=== PATIENT | female | born 1935 | race Caucasian/White ===

== ENCOUNTER 2017-10-04 06:08 | Day surgery (SDC) | payer OTHER ==
[~2017-10-04] VITALS: Ht 157.5 cm; Wt 77.2 kg
[2017-10-04 06:50] VITALS: BP 161/105; PULSE 100; RESP 20; TEMP 98.2; O2SAT 100
[2017-10-04] MEDS ORDERED: COQ-50CA2 PO (06:56)
[2017-10-04] MEDS ORDERED: HYDR12.57 PO (06:56)
[2017-10-04] MEDS ORDERED: FERR325T18 PO (06:56)
[2017-10-04] MEDS ORDERED: BENA10TA PO (06:56)
[2017-10-04] MEDS ORDERED: CALC250T PO (06:56)
[2017-10-04] MEDS ORDERED: PRAV80TA2 PO (06:56)
[2017-10-04] MEDS ORDERED: MAGN400T2 PO (06:56)
[2017-10-04] MEDS ORDERED: DOCU1CAP66 PO (06:56)
[2017-10-04] MEDS ORDERED: MULTTAB67 PO (06:56)
[2017-10-04 07:21] LABS: AUTOMATED NEUTROPHIL # 2.5 TH/MM3 (1.8-7.7); BASOPHIL # 0.1 TH/MM3 (0-0.2); BASOPHIL % 1.2 % (0.0-2.0); EOSINOPHIL # 0.2 TH/MM3 (0-0.4); EOSINOPHIL % 3.9 % (0.0-4.0); HEMATOCRIT 31.7 % (35.0-46.0); HEMO FLAGS DIFF FINAL; LYMPH % 39.8 % (9.0-44.0); LYMPHOCYTE # 2.2 TH/MM3 (1.0-4.8); MEAN CORPUSCULAR HEMOGLOBIN 25.8 PG (27.0-34.0); MEAN CORPUSCULAR HGB CONC 31.9 % (32.0-36.0); MONO % 9.6 % (0.0-8.0); NEUT % 45.5 % (16.0-70.0); PLATELET COUNT 459 TH/MM3 (150-450); RED BLOOD COUNT 3.91 MIL/MM3 (4.00-5.30); RED CELL DISTRIBUTION WIDTH 18.3 % (11.6-17.2); WHITE BLOOD COUNT 5.4 TH/MM3 (4.0-11.0)
[2017-10-04] MEDS ORDERED: SODIUM CHLOR 0.9% 1000 ML IV SCH (07:45)
[2017-10-04] MEDS ORDERED: LIDOCAINE 1%/EPINEPHrine 1:100,000 SOLN 20 ML VIAL ONE (07:58)
[2017-10-04] MEDS ORDERED: MIDAZOLAM HCL 2 MG/2 ML VIAL ONE (08:14)
--- NOTE | 2017-10-04 08:41 | PD.RAD ---
Post CT Procedure Prog Note Pre Procedure Diagnosis: (1) Anemia Post Procedure Diagnosis: (1) Anemia Procedure Date: Oct 04, 2017 Supervising Radiologist: Tremayne Valerio Anesthesia: Conscious Sedation Plan of Activity Patient to Unit: [facility] Patient Condition: Good See PACS Report for procedural detail/treatment Tremayne Valerio MD Oct 04, 2017 08:40
[2017-10-04 08:55] VITALS: BP 115/73; PULSE 99; RESP 18; TEMP 97.5; O2SAT 93
[2017-10-04 09:10] VITALS: BP 113/79; PULSE 98; RESP 18; O2SAT 92
[2017-10-04 09:40] VITALS: BP 135/84; PULSE 97; RESP 18; O2SAT 95
[2017-10-04 09:44] LABS: BONE MARROW PROCESSING COMPLETE; IRON STAIN DONE; JENNER GIEMSA STAIN DONE
[2017-10-04 10:10] VITALS: BP 106/72; PULSE 100; RESP 18; O2SAT 95
--- NOTE | 2017-10-04 11:24 | RADRPT ---
EXAM DATE/TIME: 10/04/2017 08:23 [facility] COMPARISON: No previous studies available for comparison. INDICATIONS : Anemia. SEDATION TIME: 30 minutes BIOPSY SITE: Right iliac MEDICATION(S): 1.) 3 mg midazolam (Versed) IV 2.) 150 mcg fentanyl (Sublimaze) IV DEVICE(S): 1.) 11 gauge Bone marrow biopsy needle MEDICAL HISTORY : Hypertension. Anemia SURGICAL HISTORY : Hysterectomy. ENCOUNTER: Initial ACUITY: 1 day PAIN SCORE: 0/10 LOCATION: Right pelvis A total of one core specimen(s) were obtained and sent to the laboratory for pathologic evaluation. PROCEDURE: 1. CT guided bone marrow biopsy. 2. Conscious sedation with continuous EKG and oximetry monitoring. Prior to the procedure informed consent was obtained. Any appropriate prior imaging studies were rev iewed. Using automated exposure control and adjustment of the mA and/or kV according to patient size , radiation dose was kept as low as reasonably achievable to obtain optimal diagnostic quality images . DICOM format image data is available electronically for review and comparison. The site was prepped in a sterile fashion. Full sterile technique was used, including cap, mask, connie rile gloves and gown and a large sterile sheet. Hand hygiene and 2% chlorhexidine and/or betadine/al cohol prep was utilized per protocol for cutaneous antisepsis. The skin and subcutaneous tissues wer e infiltrated with local anesthetic solution. With CT guidance the previously identified target was localized. Biopsy was performed using the presc ribed needle as above. Following biopsy marrow aspiration was performed with repeat puncture. Adequa te hemostasis was obtained with compression at the puncture site. Follow-up CT scan reveals no hemorrhage. Conscious sedation was performed with the prescribed dosages and duration as above in the presence of an independent trained radiology nurse to assist in the monitoring of the patient. EKG and oximetry remained stable throughout the procedure. The patient tolerated the procedure well and there were no complications. The patient was sent to Radiology Outpatient Unit in stable condition. CONCLUSION: 1. Uncomplicated CT guided bone marrow aspirate. 2. Uncomplicated CT guided bone marrow biopsy. Tremayne Valerio MD on October 04, 2017 at 11:22 Board Certified Radiologist. This report was verified electronically.
== END 2017-10-04 10:52 | disposition home or self-care (01) ==
LOC: HRAD 06:08 → HRIP 06:11 → HRAD 10:52
PROVIDERS: ATTEND Internal Medicine Hematology & Oncology
DX: D50.9 Iron deficiency anemia, unspecified (principal); D47.3 Essential (hemorrhagic) thrombocythemia; I10 Essential (primary) hypertension
CPT/HCPCS: 38221; 77012; 85025; 85097; 88184; 88185; 88237; 88264; 88280; 88305; 88311; 88313; 99152; 99153; C1830; G0364; J2250; J3010; J7030

== ENCOUNTER → 2018-01-20 | Day surgery (SDC) | payer OTHER ==
--- NOTE | 2018-01-15 15:34 | MH ---
cc: Ashish Tapia MD DATE OF ADMISSION: 01/20/2018 ADMITTING DIAGNOSIS: Osteoarthritic degeneration, right knee, now being admitted for right total knee arthroplasty. ADMISSION HISTORY AND PHYSICAL: This pleasant 83-year-old female is being admitted today for right total knee arthroplasty for severe painful osteoarthritic degeneration, right knee. PAST MEDICAL HISTORY: The patient has a history of iron deficiency anemia, but her current hemoglobin is 11.7. She also has a history of hypertension. CURRENT MEDICATIONS: Vitamins with iron, pravastatin, benazepril, hydrochlorothiazide, calcium citrate and ferrous gluconate. PAST SURGICAL HISTORY: Biopsy of the breast. REVIEW OF SYSTEMS: Noncontributory. FAMILY HISTORY: Noncontributory. SOCIAL HISTORY: She does not smoke, drinks socially. ALLERGIES: IS ALLERGIC TO CODEINE, BUT NOT NORCO, AND PENICILLIN. PHYSICAL EXAMINATION: GENERAL: We find an 83-year-old female, well developed, well nourished, oriented x 3, complaining of pain in the right knee. VITAL SIGNS: Blood pressure 118/80, pulse 94 and regular, respirations 16, temperature 97.7, pulse oximetry 98% on room air. HEENT: Eyes PERRL, EOMI. Ears, nose, mouth clear. NECK: Supple. LUNGS: Clear. HEART: Regular rate. ABDOMEN: Soft, positive bowel sounds, nontender. EXTREMITIES: Reveal the right knee to be tender. Neurovascularly intact to her toes. IMPRESSION: Severe painful osteoarthritic degeneration, right knee. PLAN: Admission for right total knee arthroplasty today. The patient was given prescription for postoperative pain and anticoagulation control in the office. Plans on going home after surgical stay in the hospital. JMD GLENNA Cardenas/BRITTNEE , 03:10 PM , 03:32 PM
[~2018-01-20] MED LIST: BENA10TA PO; BUPIVACAINE LIPOSO PF 1.3% INJ 20 ML, BUPIVACAINE PF 0.25% INJ 20 ML in SODIUM CHLORIDE... P-ARTICULR SCH; CALC250T PO; CHLORHEXIDINE GLUCONATE 2 % 1 PACK (2 CLOTHS) TOPICAL PRN; CHLORHEXIDINE GLUCONATE 4% SOLN 120 ML BTL TOPICAL SCH; CLINDAMYCIN 900 MG/NS 100 ML IV SCH; COQ-50CA2 PO; DEXAMETHASONE SOD PHOS 20 MG/5 ML VIAL IV ONE; DOCU1CAP66 PO; FERR325T18 PO; HYDR12.57 PO; L-LY500T4 PO; LACTATED RINGER'S 1000 ML IV PRN; MAGN400T2 PO; METOPROLOL TARTRATE 25 MG TAB PO PRN; MULTTAB67 PO; Magnesium; POVIDONE IODINE 5% (ANTISEPSIS KIT) 4 APPLICATIONS EACH NARE PRN; PRAV80TA2 PO; SODIUM CHLORID 0.9% 500 ML IV PRN; TRANEXAMIC ACID INJ 790 MG in SODIUM CHLORIDE 0.9% INJ 100 ML IV SCH; VANCOMYCIN 1000 MG/NS 250 ML (for <70 kg) IV SCH; VITA500T83 PO
[2018-01-20 08:05] VITALS: BP 142/83; PULSE 102; RESP 16; TEMP 97.5; O2SAT 98
[2018-01-20 09:19] LABS: BILIRUBIN, URINE NEG (NEG); BLOOD, URINE NEG (NEG); GLUCOSE,URINE NEG (NEG); HYALINE CAST, URINE 2 /lpf (RARE); KETONE, URINE NEG (NEG); NITRITE,URINE NEG (NEG); PH, URINE 5.5 (5.0-8.5); URINE COLOR YELLOW (YELLW/STRAW); URINE LEUKOCYTE ESTERASE NEG (NEG)
[2018-01-20 09:20] LABS: SQUAMOUS EPITHELIAL CELL URINE <1 /hpf (0-5)
== END | disposition home or self-care (01) ==
LOC: HSDC 07:42
PROVIDERS: ATTEND Surgery
DX: M17.11 Unilateral primary osteoarthritis, right knee (principal); R82.99 Other abnormal findings in urine; I10 Essential (primary) hypertension; Z88.5 Allergy status to narcotic agent; Z53.09 Procedure and treatment not carried out because of other contraindication
CPT/HCPCS: 81001; C9290; G0463; 99211

== ENCOUNTER 2018-01-24 06:23 | Inpatient (IN) | payer OTHER, MEDICARE ==
[~2018-01-24] VITALS: Ht 157.5 cm; Wt 78.9 kg
[~2018-01-24 06:23] MED LIST changes: -BUPIVACAINE LIPOSO PF 1.3% INJ 20 ML, BUPIVACAINE PF 0.25% INJ 20 ML in SODIUM CHLORIDE... P-ARTICULR SCH; -CHLORHEXIDINE GLUCONATE 2 % 1 PACK (2 CLOTHS) TOPICAL PRN; -CHLORHEXIDINE GLUCONATE 4% SOLN 120 ML BTL TOPICAL SCH; -CLINDAMYCIN 900 MG/NS 100 ML IV SCH; -DEXAMETHASONE SOD PHOS 20 MG/5 ML VIAL IV ONE; -LACTATED RINGER'S 1000 ML IV PRN; -METOPROLOL TARTRATE 25 MG TAB PO PRN; -Magnesium; -POVIDONE IODINE 5% (ANTISEPSIS KIT) 4 APPLICATIONS EACH NARE PRN; -SODIUM CHLORID 0.9% 500 ML IV PRN; -TRANEXAMIC ACID INJ 790 MG in SODIUM CHLORIDE 0.9% INJ 100 ML IV SCH; -VANCOMYCIN 1000 MG/NS 250 ML (for <70 kg) IV SCH
[2018-01-24] MEDS ORDERED: CHLORHEXIDINE GLUCONATE 2 % 1 PACK (2 CLOTHS) TOPICAL PRN (07:15)
[2018-01-24] MEDS ORDERED: CHLORHEXIDINE GLUCONATE 4% SOLN 120 ML BTL TOPICAL SCH (07:15)
[2018-01-24] MEDS ORDERED: METOPROLOL TARTRATE 25 MG TAB PO PRN (07:15)
[2018-01-24] MEDS ORDERED: POVIDONE IODINE 5% (ANTISEPSIS KIT) 4 APPLICATIONS EACH NARE PRN (07:15)
[2018-01-24] MEDS ORDERED: VANCOMYCIN 1000 MG/NS 250 ML (for <70 kg) IV SCH ×2 (07:15)
[2018-01-24] MEDS ORDERED: CLINDAMYCIN 900 MG/NS 100 ML IV SCH ×2 (07:15)
[2018-01-24] MEDS: DEXAMETHASONE SOD PHOS PF 10 MG/ML VIAL IV PUSH ONE ×2 (07:15→07:28)
[2018-01-24] MEDS ORDERED: SODIUM CHLORID 0.9% 500 ML IV PRN (07:15)
[2018-01-24] MEDS ORDERED: LACTATED RINGER'S 1000 ML IV PRN (07:15)
[2018-01-24] MEDS ORDERED: ACETAMINOPHEN 1000 MG/100 ML 100 ML IV ONE (07:16)
[2018-01-24 07:24] VITALS: PULSE 92
[2018-01-24] MEDS ORDERED: FAT EMULSION 20% INJ 0 ML ONE (07:34)
[2018-01-24] MEDS ORDERED: GENTAMICIN SULFATE 80 MG/2 ML VIAL ONE (07:51)
[2018-01-24] MEDS ORDERED: MIDAZOLAM HCL 2 MG/2 ML VIAL ONE (08:10)
[2018-01-24] MEDS ORDERED: ROPIVACAINE 0.5% PF INJ 30 ML VIAL ONE (08:11)
[2018-01-24] MEDS ORDERED: BUPIVACAINE LIPOSO PF 1.3% INJ 20 ML, BUPIVACAINE PF 0.25% INJ 20 ML in SODIUM CHLORIDE... P-ARTICULR SCH (08:15)
[2018-01-24] MEDS ORDERED: SODIUM CHLORIDE 0.9% IV SCH ×3 (08:30→12:00)
[2018-01-24] MEDS ORDERED: TRANEXAMIC ACID IV SCH ×3 (08:30→12:00)
[2018-01-24] MEDS ORDERED: NALOXONE HCL 0.4 MG/ML AMP IV PUSH PRN (08:45)
[2018-01-24] MEDS ORDERED: Post-op Orders (for Pharmacy) XX ONE (08:45)
--- NOTE | 2018-01-24 08:50 | HHI.FF ---
Face to Face Verification Diagnosis: (1) Status post total right knee replacement using cement Physical Therapy Gait training Knee: Total knee, Protocol: Right, Full weight bearing Canvas Knee Splint: When in bed & 2 pillows btw thighs Nursing RN: 3 days/week x 2 weeks Nursing: Dressing changes Dressing Changes: Daily dressing change, 4x4s, Gauze, Paper tape I have seen patient Trevin Damico on 01/24/18. My clinical findings support the need for the requested home health care services because: Limited ability to care for self High risk of falls I certify that my clinical findings support that this patient is homebound because: Unsteady gait/balance Ashish Tapia MD Jan 24, 2018 08:50
[2018-01-24] MEDS ORDERED: CPMMACHINE (08:51)
[2018-01-24] MEDS ORDERED: ADJUSTABLE COMM1 MIS (08:53)
[2018-01-24] MEDS ORDERED: WALKER WHEELS/F1 MIS (08:53)
[2018-01-24] MEDS: LISINOPRIL 10 MG TAB PO SCH (09:00)
[2018-01-24] MEDS ORDERED: LYSINE PO SCH (09:00)
[2018-01-24] MEDS: CALCIUM CARBONATE 1.25 GM (CA 500 MG) TAB PO SCH (10:00)
[2018-01-24] MEDS ORDERED: ACETAMINOPHEN 325 MG TAB PO PRN (10:00)
[2018-01-24] MEDS ORDERED: ONDANSETRON HCL 4 MG/2 ML VIAL IVP PRN (10:00)
[2018-01-24] MEDS: ASCORBIC ACID 500 MG TAB PO SCH (10:00)
[2018-01-24] MEDS: MAGNESIUM OXIDE 400 MG TAB PO SCH (10:00)
[2018-01-24] MEDS ORDERED: MULTIVITAMIN TAB PO SCH (10:00)
[2018-01-24] MEDS ORDERED: ACETAMINOPHEN/HYDROcodone 325 MG/7.5 MG TAB PO PRN (10:00)
[2018-01-24] MEDS ORDERED: diphenhydrAMINE HCL 50 MG/ML VIAL IV PUSH PRN (10:00)
[2018-01-24] MEDS ORDERED: MORPHINE SULFATE 4 MG/ML INJ IV PUSH PRN (10:00)
[2018-01-24] MEDS ORDERED: TEMAZEPAM 15 MG CAP PO PRN (10:00)
[2018-01-24] MEDS: HYDROCHLOROTHIAZIDE 12.5 MG CAP PO SCH (10:00)
[2018-01-24] MEDS: FERROUS SULFATE 325 MG (65 MG ELEMENTAL IRON) TAB PO SCH ×2 (10:00→16:31)
--- NOTE | 2018-01-24 11:24 | MP ---
cc: Ashish Tapia MD DATE OF OPERATION: 01/24/2018 DATE OF SURGERY: 01/24/2018. PREOPERATIVE DIAGNOSIS: Osteoarthritic degeneration, right knee. POSTOPERATIVE DIAGNOSIS: Osteoarthritic degeneration, right knee. SURGERY PERFORMED: Right total knee arthroplasty using Consensus components size 4 femur, 1 tibia, size 14 insert and size 1 patella. The insert is E1 poly. 3 batches of DePuy cement. SURGEON: Dr. Tapia ANESTHESIA: General intubation and block. RUBY RAILS DEVELOPER: Jemma MOURA. PROCEDURE: After successful induction of anesthesia, the patient is placed on the operating room table in the supine position. The knee is prepped and draped in the usual manner. A tourniquet is inflated at the upper thigh and set to 300 mmHg pressure after exsanguination of the lower extremity. A longitudinal incision is made extending from 3 inches proximal to the superior pole of the patella, across the patella in longitudinal fashion, and down past the insertion of the tibial tubercle into the proximal tibia. The incision is carried down through subcutaneous tissue along the medial aspect of the patella and retinaculum, down through the capsule to expose the knee joint. The patella and patellar tendon are freed up enough to allow the patella to be inverted and retracted off the lateral side of the knee joint. The knee joint is left exposed. Small osteophytes are removed. All soft tissue is removed to allow proper position of the femoral and tibial cutting jig guide. The first femoral jig is then inserted along the distal end of the femur after first measuring to decide whether this is a small, medium, or large component. The notch is then drilled and the tibial cutting guide inserted into the femoral cutting guide, along with the ankle brace to allow for proper measurement of the tibial cutting surface that needed to be resected. Pins are inserted into the tibial cutting jig and femoral cutting jig to hold them in place. An oscillating saw is then used to resect the surface of the tibia. The surface of the tibia is then completely removed using sharp and blunt dissection. The anterior and posterior cuts of the femur are then made as well using an oscillating saw through the cutting guide. All guides are then removed and the varus/valgus angulation cutting guide applied to the femur for proper measurement of the proper amount of valgus. The anterior cutting guide for the femur is then inserted at the anterior femoral cuts made. Next, the first block trial is inserted into the femur to allow for proper condyle drill holes to be made which are then made followed by removal of the bone between the condyles using an oscillating saw as well as the bone removed at the most posterior surface of the condyle. After this, this guide is removed and the chamfer cuts made using the chamfer cutting guide from both anterior and posterior. Next, the femoral trial is then inserted, the tibial surface reflected anterior to expose the tibial surface and a tibial stem guide is inserted after first measuring for a standard, standard plus, large, or large plus surface to be used. After the stem is impacted the trial tibial surface is applied followed by the trial meniscal components. After full range of motion is found with the appropriate length meniscal components varying the patella is prepared by resecting the posterior aspect of the patella using an oscillating saw, inserting a trial. The trial is then removed and the cruciate cutting guide applied using the bur to cut the cruciate cuts. After cruciate cuts are made all trials are removed. The wound is irrigated copiously with antibiotic solution and Water Pik and the actual components inserted into place using the aforementioned components for the Consensus knee system with B-spoke protocol. After the cement has hardened and the components are found to have full range of motion with no instability, the tourniquet is deflated, total tourniquet time being 47 minutes at 300 mmHg pressure. Meticulous hemostasis was achieved. 120 cc of a mixture of Exparel, 0.25% Marcaine plain and normal saline was used around the knee joint for extra pain control. The wound again is irrigated copiously with antibiotic solution, meticulous hemostasis achieved. The deep fascia was approximated with running #2 Quill, the subcutaneous tissue using interrupted running 2-0 and 4-0 Monocryl sutures, Steri-Strips, sterile dressing and knee immobilizer. No drain utilized. ESTIMATED BLOOD LOSS: 100 mL. COUNTS: Sponge and suture counts were correct. CONDITION: The patient tolerated the procedure well and left the Operating Room in satisfactory condition. ZENY Arias, was present during the entire procedure to include patient positioning and the procedure. The medical necessity of a nurse practitioner corporate administrative assistant was indicated in this case due to the surgical complexity of the case itself. During the surgical case the data technical lead was working the back table while my pharmacy technician assistant ZENY was directly assisting me. JMD GLENNA Cardenas/BRITTNEE , 11:00 AM , 11:24 AM
[2018-01-24] MEDS ORDERED: DO NOT ADM ANY ANTICOAGULANT DRUGS PRN (11:28)
--- NOTE | 2018-01-24 11:29 | HHI.PR ---
Immediate Post Op Note Procedure Date: Jan 24, 2018 Pre Op Diagnosis: (1) Osteoarthritis of right knee Post Op Diagnosis: Osteoarthritis of right Knee Surgeon: Ashish Tapia MD Motor Runner(s): Jemma MOURA Procedure: Right Total knee Arthroplasty Complications: none Specimen(s) removed: none Estimated blood loss: 100cc Anesthesia: General Drains: None IVF Urinary Output (mLs): 0 (No hernandez) Tourniquet time (min at mmHg) 47 mins at 300 mmHg Patient to: PACU Patient Condition: Good Implant/Devices: SEE IMPLANT LOG (if applicable) Date/Time of Procedure: SEE SURGICAL CARE RECORD Jemma Estrada Jan 24, 2018 11:29
[2018-01-24] MEDS: LACTATED RINGER'S 1000 ML INJ 1,000 ML IV SCH ×2 (11:30→16:32)
[2018-01-24] MEDS ORDERED: MORPHINE SULFATE 4 MG/ML INJ ONE (11:35)
[2018-01-24] MEDS ORDERED: *morphine SULFATE 4 MG/ML PERIprocedure ONLY ONE (11:43)
[2018-01-24] MEDS ORDERED: GLYCOPYRROLATE 1 MG/5 ML SYRINGE IV PUSH ONE (12:00)
[2018-01-24] MEDS ORDERED: NEOSTIGMINE 5 MG/5 ML SYRINGE IV PUSH ONE (12:00)
[2018-01-24] MEDS ORDERED: PHENYLEPH/NS 1000 MCG/10 ML SYR IV ONE (12:00)
[2018-01-24] MEDS ORDERED: LACTATED RINGER'S 1000 ML INJ 1,000 ML IV ONE (12:00)
[2018-01-24] MEDS ORDERED: LIDOCAINE HCL 1% PF 5 ML SYRINGE OTHER ONE (12:00)
[2018-01-24] MEDS ORDERED: ESMOLOL HCL 100 MG/10 ML VIAL IV ONE (12:00)
[2018-01-24] MEDS ORDERED: ROCURONIUM INJ 50 MG/5 ML SYRINGE IV PUSH ONE (12:00)
[2018-01-24] MEDS ORDERED: PROPOFOL 200 MG/20 ML AMP IV ONE (12:00)
[2018-01-24] MEDS ORDERED: ONDANSETRON HCL 4 MG/2 ML VIAL IV ONE (12:00)
--- NOTE | 2018-01-24 12:45 | RADRPT ---
EXAM DATE/TIME: 01/24/2018 12:17 [facility] COMPARISON: No previous studies available for comparison. INDICATIONS : Post op right knee surgery MEDICAL HISTORY : None. SURGICAL HISTORY : None. ENCOUNTER: Initial ACUITY: 1 day PAIN SCORE: 9/10 LOCATION: Right knee FINDINGS: Right total knee arthroplasty changes are noted. Alignment appears normal. No fracture or or evidence of hardware failure or loosening. CONCLUSION: Expected radiographic appearance after right total knee arthroplasty. No acute complication demonstra justino. Miles Francis MD on January 24, 2018 at 12:43 Board Certified Radiologist. This report was verified electronically.
--- NOTE | 2018-01-24 13:09 | PD.PN.STU ---
Subjective Remarks The patient is a pleasant 83 year old female with a history of hypertension, hypercholesterolemia, and osteoarthritis who is s/p elective total right knee arthroplasty this morning 01/24 due to arthritic damage. Her orthopedic surgeon is Dr. Tapia. Hospitalist service was consulted for medical management. Patient is resting comfortably in the PACU, she has no acute concerns. She denies chest pain, shortness of breath, nausea, vomiting, fever, chills. Past Medical Hx: Hypertension Hypercholesterolemia Osteoarthritis Medications: Vitamin C 500 mg PO daily Benazepril 10 mg PO daily Calcium citrate 250 mg PO daily Co Q 100 mg PO HS Ferrous Sulfate 325 mg PO BID HCTZ 12.5 mg PO daily Lysine 500 mg PO daily Magnesium oxide 400 mg PO daily Multivitamin 1 tab mg PO daily Pravastatin 80 mg PO HS Allergies Penicillins, codeine, tramadol Past Surgical History S/P right total knee arthroplasty Hysterectomy Cholecystectomy Bunions Breast bx Family History Lung cancer - mother CVA - father Social History Alcohol - <1 drink a month Tobacco - 28 pack year history - quit in 1979 No hx of illicit drug use Objective Vitals Vital Signs Date Time Temp Pulse Resp B/P (MAP) Pulse Ox O2 Delivery O2 Flow Rate FiO2 01/24/18 11:30 92 12 151/86 (107) 95 Nasal Cannula 3 01/24/18 11:26 97.8 94 12 154/77 (102) 95 Nasal Cannula 3 01/24/18 07:24 92 01/24/18 07:24 99 Nasal Cannula 01/24/18 07:13 98.0 102 20 144/99 (114) 98 I/O 01/23/18 01/23/18 01/23/18 01/24/18 01/24/18 01/24/18 07:00 15:00 23:00 07:00 15:00 23:00 Intake Total 1300 ml Output Total 100 ml Balance 1200 ml Intake Other 1300 ml Output Estimated Blood Loss 100 ml Objective Remarks GENERAL: Alert, oriented x3, NAD, resting in PACU SKIN: Warm and dry. HEAD: Normocephalic. EYES: No scleral icterus. No injection or drainage. NECK: Supple, trachea midline. No JVD or lymphadenopathy. CARDIOVASCULAR: Regular rate and rhythm without murmurs, gallops, or rubs. RESPIRATORY: Breath sounds equal bilaterally. No accessory muscle use. GASTROINTESTINAL: Abdomen soft, non-tender, nondistended. MUSCULOSKELETAL: No cyanosis, or edema. SCD present on right leg, left leg bandaged and elevated BACK: Nontender without obvious deformity. No CVA tenderness. Procedures S/P total right knee arthroplasty A/P Assessment and Plan The patient is a pleasant 83 year old female with a history of hypertension, hypercholesterolemia, and osteoarthritis who is s/p total right knee arthroplasty this morning 01/24. Her orthopedic surgeon is Dr. Tapia. Hospitalist service was consulted for medical management. Patient is resting comfortably in the PACU, she has no acute concerns. She denies chest pain, shortness of breath, nausea, vomiting, fever, chills. HTN Restart HCTZ 12.5 mg PO daily Restart Benazepril 10 mg PO daily Hypercholesterolemia Restart Pravastatin 80 mg PO HS DVT:prophylaxis: pending ortho recs D/C pending ortho recs. The patient was seen and examined. The note above was reviewed and agree with the note. The case was discussed in length with Gonzalez Riddle MS III. Gonzalez Riddle M3 Jan 24, 2018 13:09 Lien Valverde MD Jan 24, 2018 13:54
[2018-01-24 15:30] VITALS: BP 127/80; PULSE 95; RESP 16; TEMP 97.3; O2SAT 93
[2018-01-24] MEDS: CLINDAMYCIN INJ 900 MG in SODIUM CHLORIDE 0.9% INJ 100 ML IV SCH (16:29)
--- NOTE | 2018-01-24 18:43 | PD.CONS ---
HPI Service [facility] Hospitalists Consult Requested By ortho Reason for Consult Medical management Primary Care Physician Perico Goddard MD Diagnoses: (1) Anemia (2) Hypertension (3) Osteoarthritis of right knee (4) Status post total right knee replacement using cement History of Present Illness The patient is a pleasant 83 year old female with a history of hypertension, hypercholesterolemia, and osteoarthritis who is s/p elective total right knee arthroplasty this morning 01/24 due to arthritic damage. Her orthopedic surgeon is Dr. Tapia. Hospitalist service was consulted for medical management. Patient is resting comfortably in the PACU, she has no acute concerns. She denies chest pain, shortness of breath, nausea, vomiting, fever, chills. Review of Systems Except as stated in HPI: all other systems reviewed are Neg Past Family Social History Allergies: Coded Allergies: Penicillins (Verified Allergy, Severe, Hives, 01/22/18) codeine (Verified Allergy, Severe, NAUSEA, GI UPSET, 01/22/18) tramadol (Verified Allergy, Unknown, ITCHING, 01/22/18) Past Medical History Hypertension Hypercholesterolemia Osteoarthritis Past Surgical History S/P right total knee arthroplasty Hysterectomy Cholecystectomy Bunions Breast bx Reported Medications Reported Meds & Active Scripts Active Reported l-Lysine (Lysine) 500 Mg Tab 1 Tab PO DAILY Vitamin C ER (Ascorbic Acid) 500 Mg Mariel 500 Mg PO DAILY Stool Softener (Docusate Sodium) 100 Mg Cap 100 Mg PO HS Magnesium Oxide 400 Mg Tab 400 Mg PO DAILY Ferrous Sulfate 325 Mg (65 Mg Iron) Tablet 325 Mg PO BIDPC Coq-10 (Coenzyme Q10 (Ubidecarenone)) 50 Mg Cap 100 Mg PO HS Multiple Vitamin 1 Tab 1 Tab PO DAILY Calcium Citrate 250 Mg Calcium Tab 630 Mg PO DAILY Hydrochlorothiazide 12.5 Mg Cap 12.5 Mg PO DAILY Benazepril (Benazepril HCl) 10 Mg Tab 10 Mg PO DAILY Pravastatin 80 Mg Tab 80 Mg PO HS Family History Lung cancer - mother CVA - father Social History Alcohol - <1 drink a month Tobacco - 28 pack year history - quit in 1979 No hx of illicit drug use Physical Exam Vital Signs Vital Signs Date Time Temp Pulse Resp B/P (MAP) Pulse Ox O2 Delivery O2 Flow Rate FiO2 01/24/18 15:30 91 12 131/82 (98) 97 Room Air 01/24/18 14:30 87 12 120/58 (78) 99 Room Air 01/24/18 13:30 68 12 119/66 (83) 97 Nasal Cannula 3 01/24/18 12:30 98.1 71 12 117/65 (82) 95 Nasal Cannula 3 01/24/18 12:15 83 12 118/70 (86) 96 Nasal Cannula 3 01/24/18 12:00 80 12 133/75 (94) 97 Nasal Cannula 3 01/24/18 11:45 86 12 135/74 (94) 93 Nasal Cannula 3 01/24/18 11:30 92 12 151/86 (107) 95 Nasal Cannula 3 01/24/18 11:26 97.8 94 12 154/77 (102) 95 Nasal Cannula 3 01/24/18 07:24 92 01/24/18 07:24 99 Nasal Cannula 01/24/18 07:13 98.0 102 20 144/99 (114) 98 Physical Exam GENERAL: This is a well-nourished, well-developed patient, in no apparent distress. SKIN: No rashes, ecchymoses or lesions. Cool and dry. HEAD: Atraumatic. Normocephalic. No temporal or scalp tenderness. EYES: Pupils equal round and reactive. Extraocular motions intact. No scleral icterus. No injection or drainage. ENT: Nose without bleeding, purulent drainage or septal hematoma. Throat without erythema, tonsillar hypertrophy or exudate. Uvula midline. Airway patent. NECK: Trachea midline. No JVD or lymphadenopathy. Supple, nontender, no meningeal signs. CARDIOVASCULAR: Regular rate and rhythm without murmurs, gallops, or rubs. RESPIRATORY: Clear to auscultation. Breath sounds equal bilaterally. No wheezes , rales, or rhonchi. GASTROINTESTINAL: Abdomen soft, non-tender, nondistended. No hepato-splenomegaly , or palpable masses. No guarding. MUSCULOSKELETAL: S/p right leg surgery on bandage c/d/di. Extremities without clubbing, cyanosis, or edema. No edema noted. No calf tenderness. Negative Homans sign. NEUROLOGICAL: Awake and alert. Cranial nerves II through XII intact. Motor and sensory grossly within normal limits. Five out of 5 muscle strength in all muscle groups. Normal speech. Imaging Last Impressions Knee X-Ray 01/24/18 1217 Signed Impressions: Service Date/Time: Wednesday, January 24, 2018 12:17 - CONCLUSION: Expected radiographic appearance after right total knee arthroplasty. No acute complication demonstrated. Miles Francis MD Assessment and Plan Assessment and Plan The patient is a pleasant 83 year old female with a history of hypertension, hypercholesterolemia, and who is s/p total right knee arthroplasty this morning 01/24. Her orthopedic surgeon is Dr. Tapia. Hospitalist service was consulted for medical management. Patient is resting comfortably in the PACU, she has no acute concerns. She denies chest pain, shortness of breath, nausea, vomiting, fever, chills. Osteoarthritis S/P total right knee arthroplasty by Dr Tapia. Management per surgeon HTN Restart HCTZ 12.5 mg PO daily Restart Benazepril 10 mg PO daily Hypercholesterolemia Restart Pravastatin 80 mg PO HS DVT:prophylaxis: pending ortho recs D/C pending ortho recs. DVT prophylaxis per surgeon Thank you for this consultation. Discussed Condition With pt, nurse Lien Valverde MD Jan 24, 2018 18:43
[2018-01-24 19:24] VITALS: O2SAT 93
[2018-01-24 20:45] VITALS: BP 154/74; PULSE 98; RESP 17; TEMP 97.5; O2SAT 98
[2018-01-24] MEDS ORDERED: NON-FORMULARY DRUG (Coenzyme Q10 (Ubidecarenone) (Coq-10) 100 MG) PO SCH (21:00)
[2018-01-24] MEDS ORDERED: DOCUSATE SODIUM 100 MG CAP PO SCH (21:00)
[2018-01-24] MEDS ORDERED: PRAVASTATIN SOD 80 MG TAB PO SCH (21:00)
[2018-01-24 23:30] VITALS: BP 138/72; PULSE 110; RESP 17; TEMP 98; O2SAT 95
[2018-01-25] MEDS: CLINDAMYCIN INJ 900 MG in SODIUM CHLORIDE 0.9% INJ 100 ML IV SCH ×2 (00:30→09:16)
[2018-01-25 03:45] VITALS: BP 118/68; PULSE 105; RESP 17; TEMP 97.9; O2SAT 93
[2018-01-25] MEDS: ACETAMINOPHEN/HYDROcodone 325 MG/7.5 MG TAB PO PRN ×3 (05:02→13:22)
--- NOTE | 2018-01-25 07:25 | HHI.PR ---
Subjective Remarks Patient seen and examined this morning. She is without fevers. Intermittent tachycardic. States she was uncomfortable in bed last night. Pain well controlled this am. Has not had a BM. Objective Vital Signs Date Time Temp Pulse Resp B/P (MAP) Pulse Ox O2 Delivery O2 Flow Rate FiO2 01/25/18 03:45 97.9 105 17 118/68 (85) 93 01/24/18 23:30 98.0 110 17 138/72 (94) 95 01/24/18 20:45 97.5 98 17 154/74 (100) 98 01/24/18 19:24 93 21 01/24/18 15:30 97.3 95 16 127/80 (96) 93 01/24/18 15:30 91 12 131/82 (98) 97 Room Air 01/24/18 14:30 87 12 120/58 (78) 99 Room Air 01/24/18 13:30 68 12 119/66 (83) 97 Nasal Cannula 3 01/24/18 12:30 98.1 71 12 117/65 (82) 95 Nasal Cannula 3 01/24/18 12:15 83 12 118/70 (86) 96 Nasal Cannula 3 01/24/18 12:00 80 12 133/75 (94) 97 Nasal Cannula 3 01/24/18 11:45 86 12 135/74 (94) 93 Nasal Cannula 3 01/24/18 11:30 92 12 151/86 (107) 95 Nasal Cannula 3 01/24/18 11:26 97.8 94 12 154/77 (102) 95 Nasal Cannula 3 01/24/18 07:24 92 01/24/18 07:24 99 Nasal Cannula I/O 01/24/18 01/24/18 01/24/18 01/25/18 01/25/18 01/25/18 07:00 15:00 23:00 07:00 15:00 23:00 Intake Total 1300 ml 300 ml 720 ml Output Total 100 ml Balance 1200 ml 300 ml 720 ml Intake Oral 300 ml 720 ml Other 1300 ml Output Estimated Blood Loss 100 ml # Voids 1 2 # Bowel Movements 0 Imaging Last Impressions Knee X-Ray 01/24/18 1217 Signed Impressions: Service Date/Time: Wednesday, January 24, 2018 12:17 - CONCLUSION: Expected radiographic appearance after right total knee arthroplasty. No acute complication demonstrated. Miles Francis MD Other Results GENERAL: WN, WD female laying comfortably in bed in NAD. SKIN: Warm and dry. HEENT: Pupils equal and round. MMM. NECK: Supple no tender LAD or JVD. HEART: RRR no m/r/g. LUNGS: CTAB without wheezes or crackles. ABDOMEN: Soft, NT, ND. EXTREMITIES: Right lower extremity with dressing that is c/d/i. NEURO: Awake and alert. PSYCH: Appropriate mood and affect. A/P Problem List: (1) Anemia ICD Code: D64.9 - Anemia, unspecified (2) Hypertension ICD Code: I10 - Essential (primary) hypertension (3) Osteoarthritis of right knee ICD Code: M17.11 - Unilateral primary osteoarthritis, right knee (4) Status post total right knee replacement using cement ICD Code: Z96.651 - Presence of right artificial knee joint Assessment and Plan 83-year-old female with history of hypertension, hyperlipidemia who is status post right arthroplastyt on 01/24. She is admitted to orthopedics, Dr. Tapia. Hospitalist service consulted for medical management. OA - Status post total right knee arthroplasty on 01/24 - DVT prophy per ortho Hypertension -Continue patient's home meds, HCTZ 12.5, benazepril 10 mg - BP at goal Hyperlipidemia - Continue pravastatin 80 mg at bedtime Discharge Planning D/C per Priscilla Lopez MD Jan 25, 2018 07:25
[2018-01-25 08:00] VITALS: BP 127/71; PULSE 99; RESP 17; TEMP 97.4; O2SAT 95
--- NOTE | 2018-01-25 08:58 | PD.ORT.PN ---
Subjective Subjective Remarks Pt comfortable at present with no complaints. Wants to go home today. Objective Vitals Vital Signs Date Time Temp Pulse Resp B/P (MAP) Pulse Ox O2 Delivery O2 Flow Rate FiO2 01/25/18 03:45 97.9 105 17 118/68 (85) 93 01/24/18 23:30 98.0 110 17 138/72 (94) 95 01/24/18 20:45 97.5 98 17 154/74 (100) 98 01/24/18 19:24 93 21 01/24/18 15:30 97.3 95 16 127/80 (96) 93 01/24/18 15:30 91 12 131/82 (98) 97 Room Air 01/24/18 14:30 87 12 120/58 (78) 99 Room Air 01/24/18 13:30 68 12 119/66 (83) 97 Nasal Cannula 3 01/24/18 12:30 98.1 71 12 117/65 (82) 95 Nasal Cannula 3 01/24/18 12:15 83 12 118/70 (86) 96 Nasal Cannula 3 01/24/18 12:00 80 12 133/75 (94) 97 Nasal Cannula 3 01/24/18 11:45 86 12 135/74 (94) 93 Nasal Cannula 3 01/24/18 11:30 92 12 151/86 (107) 95 Nasal Cannula 3 01/24/18 11:26 97.8 94 12 154/77 (102) 95 Nasal Cannula 3 I/O 01/24/18 01/24/18 01/24/18 01/25/18 01/25/18 01/25/18 07:00 15:00 23:00 07:00 15:00 23:00 Intake Total 1300 ml 300 ml 720 ml Output Total 100 ml Balance 1200 ml 300 ml 720 ml Intake Oral 300 ml 720 ml Other 1300 ml Output Estimated Blood Loss 100 ml # Voids 1 2 # Bowel Movements 0 Imaging Last 24 hours Impressions Knee X-Ray 01/24/18 1217 Signed Impressions: Service Date/Time: Wednesday, January 24, 2018 12:17 - CONCLUSION: Expected radiographic appearance after right total knee arthroplasty. No acute complication demonstrated. Miles Francis MD Objective Remarks Wound dressing clean and dry. Min swelling, no erythema. NV intact to toes. Assessment & Plan Ortho Post Op Day #: 1 Problem List: Assessment and Plan Home today with PT and Home health care. To office next week. Ashish Tapia MD Jan 25, 2018 08:58
[2018-01-25] MEDS: FERROUS SULFATE 325 MG (65 MG ELEMENTAL IRON) TAB PO SCH (09:06)
[2018-01-25] MEDS: LISINOPRIL 10 MG TAB PO SCH (09:06)
[2018-01-25] MEDS: HYDROCHLOROTHIAZIDE 12.5 MG CAP PO SCH (09:06)
[2018-01-25] MEDS: CALCIUM CARBONATE 1.25 GM (CA 500 MG) TAB PO SCH (09:06)
[2018-01-25] MEDS: ASCORBIC ACID 500 MG TAB PO SCH (09:06)
[2018-01-25] MEDS: MAGNESIUM OXIDE 400 MG TAB PO SCH (09:07)
[2018-01-25 09:53] LABS: HEMATOCRIT 30.2 % (35.0-46.0); HEMOGLOBIN 9.5 GM/DL (11.6-15.3)
[2018-01-25] MEDS ORDERED: APIXABAN 2.5 MG TABLET PO SCH (10:30)
[2018-01-25 12:00] VITALS: BP 98/58; PULSE 75; RESP 17; TEMP 97.3; O2SAT 95
[2018-01-25] MEDS ORDERED: MULTIVITAMINS/MINERALS THERAPEUTIC TAB PO SCH (21:00)
[2018-01-25] MEDS ORDERED: DOCUSATE SODIUM 100 MG CAP PO SCH (21:00)
[2018-01-26] MEDS ORDERED: BACITRACIN OINT 0.9 GM PKT TOP PRN (10:15)
== END 2018-01-25 14:28 | disposition home health service (06) | DRG 470 ==
LOC: HSDI 06:23 → N06A 15:56
PROVIDERS: ADMIT Surgery; ATTEND Surgery
PROC: 3E0T3BZ Introduction of Anesthetic Agent into Peripheral Nerves and Plexi, Percutaneous Approach (ICD-10-PCS; 2018-01-24)
PROC: 0SRC0J9 Replacement of Right Knee Joint with Synthetic Substitute, Cemented, Open Approach (ICD-10-PCS; principal; 2018-01-24 08:43)
DX: M17.11 Unilateral primary osteoarthritis, right knee (principal); D64.9 Anemia, unspecified; I10 Essential (primary) hypertension; E78.00 Pure hypercholesterolemia, unspecified; E78.5 Hyperlipidemia, unspecified; R00.0 Tachycardia, unspecified; Z79.899 Other long term (current) drug therapy; Z87.891 Personal history of nicotine dependence
CPT/HCPCS: 73560; 85014; 85018; 86077; 86850; 86870; 86900; 86901; 86902; 86920; 86922; 94150; C1776; C9290; J0131; J1100; J1580; J2250; J2270; J2370; J2405; J2710; J2795; J3010; J3370; J7050; J7120; L1830